=== PATIENT | male | born 1960 | race Caucasian/White ===

== ENCOUNTER 2023-10-02 06:55 | Day surgery (SDC) | payer MEDICARE ==
[~2023-10-02] VITALS: Ht 162.6 cm; Wt 72.6 kg
[2023-10-02 09:43] VITALS: BP 115/57
== END 2023-10-02 09:50 | disposition home or self-care (01) ==
LOC: ORM 06:55
PROVIDERS: ATTEND Urology
PROC: 0VB03ZX Excision of Prostate, Percutaneous Approach, Diagnostic (ICD-10-PCS; principal; 2023-10-02)
DX: C61 Malignant neoplasm of prostate (principal); E78.2 Mixed hyperlipidemia
CPT/HCPCS: J1956